=== PATIENT | female | born 1955 | race Caucasian/White ===

== ENCOUNTER → 2017-06-03 | Day surgery (SDC) | payer OTHER ==
[~2017-06-03] MED LIST: ACETAMINOPHEN/HYDROcodone 325 MG/7.5 MG TAB ONE; BUPIVACAINE HCL PF 0.5% 30 ML VIAL INFIL ONE; KETOROLAC TROMETHAMINE 30 MG/ML (IVP) VIAL IV PUSH ONE; LACTATED RINGER'S 1000 ML INJ 1,000 ML ONE; MIDAZOLAM HCL 2 MG/2 ML VIAL ONE; ONDANSETRON HCL 4 MG/2 ML VIAL IV PUSH ONE; PROPOFOL 100 MG/10 ML INJ IV ONE; ceFAZolin INJ 1,000 MG VIAL ONE
--- NOTE | 2017-06-03 18:16 | TN ---
cc: MONICA HANSON MD DATE OF SURGERY: 06/03/2017 ATTENDING PHYSICIAN/SURGEON Cristopher. PREOPERATIVE DIAGNOSIS Left knee torn medial meniscus. POSTOPERATIVE DIAGNOSIS Left knee torn medial meniscus. PROCEDURE Left knee arthroscopy with partial medial meniscectomy. PROCEDURE IN DETAIL Informed consent was obtained, the patient was taken to the operating room and placed in the supine position on the operating room table, she was initiated under general anesthesia by Dr. Styles of the Anesthesia Department. At that time the left thigh had a tourniquet applied. The left leg was prepped with Betadine soap followed by Betadine paint. The tourniquet from the hip to the toes. The patient was given gram of Ancef prior to the C-arm initiation of the operative procedure very well as the standard fashion with sterile towel about tourniquet, and sterile down sheet. A sterile U drape, sterile stockinette was applied to the foot and calf. This was wrapped with Coban extremity drape was applied time-out was held and confirmed the leg was elevated and tourniquet inflated to 300 mmHg. At that time an 18 spinal needle was placed in the region of the lateral infrapatellar portal. This region infiltrated with 4 of 0.25% Marcaine with epinephrine. Infiltration was also performed in the medial infrapatellar portal and trans patella portal regions. A small incision made with 11-blade in the region of the trans patellar portal inflated and the cannula was placed a second incision was placed in the region of the lateral infrapatellar portal and the arthroscopic cannula was placed. A diagnostic arthroscopy commenced, immediately. 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 There was an undersurface tear of the medial meniscus identified, the medial portal was established and meniscus tear was probed. The tear was in the posterior medial corner with an undersurface flap, however, there was some extension to the posterior horn region. Utilizing the basket forceps and the Jose F meniscal shaver. The medial meniscus was made with stable rim. At that time the scope was placed in the edge of the lateral compartment leg was placed in the humeral position, lateral meniscus, lateral femoral condyle, lateral tibial plateau popliteus tendon all appeared satisfactory. The scope was placed into the patellar pouch, this area appeared normal. There were no pathologic plica seen. However there was some debridement in the plica region preformed. The scope was placed an anterior cruciate ligaments were examined and these appeared normal. The scope was placed posterior medial and posterior lateral compartments. These appeared normal with no loose bodies seen. At that time the knee was thoroughly irrigated and suctioned and all cannulas were removed. Each portal was closed with single 4-0 Nylon stitch. Band-Aids, 4x4s Sof-Rol and Juan wrap were applied to the patient's knee. The patient tolerated procedure well was then taken to Recovery Room in stable condition at the completion of procedure. The sponge count, instrument counts and needle counts were correct. Estimated blood loss was less 10 cc. Total tourniquet time was 29-minutes. MD EDWIN Alvarez/barrie /4:28 PM /6:07 PM
== END | disposition home or self-care (01) ==
LOC: ESDC 11:23
PROVIDERS: ATTEND Orthopaedic Surgery
DX: S83.242A Other tear of medial meniscus, current injury, left knee, initial encounter (principal)
CPT/HCPCS: 01400; 29881; J0690; J1885; J2250; J2405; J3010; J7120